=== PATIENT | female | born 1975 ===

== ENCOUNTER 2025-07-03 16:02 | Outpatient (AMB) | payer OTHER, SELFPAY ==
--- NOTE | 2025-07-03 16:02 | MHC.OFFVIS ---
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 Allergies No Known Allergies Allergy (Verified 07/03/25 16:09) Medication List - Last Reconciled 07/03/25 by Loretta Medrano CNP [id number] mg 2 caps PO DAILY PRN 30 days gabapentin (Neurontin) 300 mg PO TID topiramate 200 mg PO BEDTIME 90 days HPI Comments Details: Lindsay is a 50-year-old female patient with a past medical history of immune deficiency syndrome treated with biweekly IVIG infusions, breast cancer diagnosis in August of 2023 with chemotherapy and bilateral mastectomy, pain related to surgery treated with gabapentin, and migraine being treated with topiramate and ?a few Fioricet with codeine every month? according to previous documentation. Jailene tells me today that she started having headaches in 2006. She has been on topiramate for control of her headaches for many years. Her headaches has been controlled up until a few years ago when she was diagnosed with primary immune disease and started treatment with IVIG. She attributes much of her headaches to the IVIG infusions. She reports that she has almost a constant underlying dull headache to the frontal areas without any accompanying migrainous features. A few times a month however her headaches will become severe and are accompanied by light sensitivity and nausea. When she has these more severe headaches, she uses Fioricet with codeine which works well. For prevention, she continues to take topiramate 200 mg at bedtime and feels that historically it has made her headaches much less severe much less frequent. She tolerates the topiramate well. [facility] Medical History (Updated 07/04/25 @ 07:48 by Loretta Medrano CNP) Common variable immunodeficiency Migraine Review of Systems Const All systems reviewed & are unremarkable except as noted in HPI and below Physical Exam Vital Signs: Last Vital Signs Pulse 58 07/03/25 16:08 Resp 16 07/03/25 16:08 BP 104/70 07/03/25 16:08 Pulse Ox 99 07/03/25 16:08 BMI result Body Mass Index 17.7 Const General: cooperative, healthy appearing, comfortable and no acute distress Nutritional Appearance: well nourished Orientation/consciousness: patient oriented x3 Limitations: no limitations HEENT Head: Yes normal to inspection and Yes normocephalic Eyes General: appearance normal, both eyes and all related structures Visual Acosta: normal visual acosta by confrontation Alignment and Position: alignment normal Periorbital: periorbital findings normal Eyelids: Yes eyelids normal Conjunctivae: conjunctivae normal Sclerae: sclerae normal Neuro General: patient oriented x3 Cranial nerves: Yes CN's II-XII intact bilaterally Cognition (Neuro): normal cognition Gait exam (Neuro): Normal gait present Motor exam (neuro): no tremor noted Sensory Exam: double simultaneous stimulation for sensation normal Romberg Test: Negative Pupils: Normal pupillary reactivity/response: bilateral Psych Appearance: grossly normal Mental Status: mental status grossly normal Speech and movement: Normal speech and movement present and Clear speech present Affect: normal affect Attitude: cooperative Thought process: Normal thought process present Thought content: Normal thought content present Insight: Good insight present (Psych) Judgement: Good judgement present (Psych) Assessment & Plan Assessment & Plan (1) Migraine without aura and without status migrainosus, not intractable: Code(s): G43.009 - Migraine without aura, not intractable, without status migrainosus Category: Medical (2) Tension type headache: Code(s): G44.209 - Tension-type headache, unspecified, not intractable Category: Medical Plan Lindsay is a 50-year-old female patient with a past medical history of immune deficiency syndrome treated with biweekly IVIG infusions, breast cancer diagnosis in August of 2023 with chemotherapy and bilateral mastectomy, pain related to surgery treated with gabapentin, and migraine here today for headache follow-up. She does note that with her IVIG infusion she feels that her headaches have ramped up compared to prior to the infusions. Together we discussed options for escalations in preventive therapy including adding a small daytime dose of topiramate vs a trial of magnesium and riboflavin supplementation in addition to her existing topiramate dosing. She would like to try the topiramate and riboflavin 1st and if there is still room for improvement, she would consider adding a daytime dose of topiramate to her existing 200 mg nightly. -Continue current regimen -Add magnesium and riboflaven -Follow-up in 6 months or sooner if needed Medications: Refilled topiramate 200 mg PO BEDTIME 90 tabs 3RF 90 days Coding Level of Care Code Est Pt Level 4 (53639) Diagnoses Migraine without aura and without status migrainosus, not intractable G43.009 Tension type headache G44.209
[2025-07-03 16:08] VITALS: BP 104/70; PULSE 58; RESP 16; O2SAT 99; BMI 17.7
--- OUTSIDE RECORDS SUMMARY | 2025-07-03 20:21 | XMS_ITS | Clinical Summary ---
Author Organization [facility] Address [address] [place] [id number] Phone Care Team Providers Care Multimedia Engineer Name Role Phone Renetta Cuevas MD Primary Care Provide r Allergies No known active allergies Medications No known medications Social History Tobacco Use Types Packs/Day Years Used Date Smoking Tobacco: Never Assessed Education Answer Date Recorded Are you interested in more education? Not on rubin e 01/10/2023 Are you concerned about learning? Not on file 01/10/2023 No 01/10/2023 No 01/10/2023 Digital Access Answer Date Recorded No 02/10/2023 No 02/10/2023 Reliable internet access at home? Not on file 02/10/2023 Device with a working camera? Not on file Intimate Partner Violence Answer Date R ecorded Are you denied basic needs s uch as food, clothing, or medical care? No 10/13/2022 In the past 12 months have y ou been in a relationship with a person who hurts, threatens, or tries to control you? No 10/13/2022 Are you denied basic needs s uch as food, clothing, or medical care? No 10/13/2022 In the past 12 months have y ou been in a relationship with a person who hurts, threatens, or tries to control you? No 10/13/2022 Comments Unknown Sex and Gender Information Value Date Recorded Sex Assigned at Not on file Legal Sex Female 1:55 PM EST Gender Identity Not on file Sexual Orientation Not on file Last Filed Vital Signs Vital Sign Reading Time Taken Comments Blood Pressure 124/75 10/13/2022 3:57 PM EST Pulse 72 10/13/2022 4:44 PM EST Temperature 36.9 C (98.4 F) 10/13/2022 4:44 PM EST Respiratory Rate 20 10/13/2022 4:44 PM EST Oxygen Saturation 98% 10/13/2022 4:44 PM EST Inhaled Oxygen Concentration - - Weight 72.6 kg (160 lb) 10/13/2022 2:09 PM EST Height 170.2 cm (5' 7 ) 10/13/2022 2:09 PM EST Body Mass Index 25.06 10/13/2022 2:09 PM EST Plan of Treatment Not on file Medical Devices Not on file Insurance [facility] H[facility] Care Teams Multimedia Engineer Relationship Specialty Start Date End Date Renetta Cuevas MD [address] [place] [id number] PCP - General Internal Medicine 10/13/22 Additional Source Comments The information contained in this document represents components of the legal health record. It is not the complete legal health record.[facility]
== END 2025-07-03 16:35 | disposition home or self-care (01) ==
LOC: HO.HSM 16:03
PROVIDERS: PCP Internal Medicine; Visit Provider Nurse Practitioner
DX: G43.009 Migraine without aura, not intractable, without status migrainosus (principal); G44.209 Tension-type headache, unspecified, not intractable
CPT/HCPCS: 99214